=== PATIENT | male | born 1950 | race Caucasian/White ===

== ENCOUNTER 2020-09-27 07:03 | Outpatient (RCR) | payer MEDICARE, SELFPAY ==
[2020-09-27] MEDS: COVID-19 VACC, MRNA(PFIZER)/PF 30 MCG/0.3 ML SYRINGE IM (13:30)
[2020-10-18] MEDS: COVID-19 VACC, MRNA(PFIZER)/PF 30 MCG/0.3 ML SYRINGE IM (13:07)
== END 2020-12-24 23:59 ==
LOC: IMMUN 07:03
PROVIDERS: Referring Provider Family Medicine; Visit Provider Family Medicine
DX: Z23 Encounter for immunization (principal)
CPT/HCPCS: 0001A; 0002A; 91300

== ENCOUNTER 2022-03-27 08:00 | Outpatient (RCR) | payer MEDICARE, SELFPAY ==
--- NOTE | 2022-02-24 13:57 | HP.PTEVAL ---
Patient's Visit Information JOSÉ MIGUEL NGUYEN is a 71 year old M referred to Physical Therapy by Dr. Megan Chambers MD with a diagnosis of B knee pain. Date of Evaluation: 02/24/22 Physical Therapist: Gilberto Givens DPT, OCS, CSCS - Visit Plan Frequency: 2x /Week Duration: 2-4 Weeks Plan: 2x/week x 2-4 weeks. rollout and stretch quad B. strengthening hips and knees without pain. Progress HEP with pics. Pt does nto want gym but ex he can do at home. Management of knee OA activitiy modification. Consider water if land not helpful - Subjective B torn meniscus around 2011. in workers comp and had them scoped in consecutive years and had PT. Wasn't too bad after that but found a lot of OA. Not sure how it formed all of a sudden and does not think it did. Anyway, knees slowly getting worse. Got new primary care doctor and gave options for knee pain of pain management, ortho for knee replacement. Has had foam injection whcih did not help. Does not want pain management or surgery. Pain is 0-1 at rest and gets worse kneeling at [facility], walking too far or standing long time and walking up steps. Pain is up to 8/10 for a short time when flared up. Poured concrete in basement and could not work fast enough due to his pain and got back pain after that. Then he needed prednisone for back. Avoids riding a bike due to knee pain and would like to walk a couple blocks to [facility] but cannot due to knee pain. Gets out of breath because his mobility has been poor. sleeps well. 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 No reguilar exercises. Basic ADLs are getting donel - Pain B knee Pain Intensity (Out of 10): 0 Pain Intensity Range: 0, 8 - Objective B varus knees and some L antalgia in gait. Trasnfers and walks I. Steps without rail I. -2 to 115 L and -5 to 112 on R knee. Tender to touch medial joint line. quad max tight otherwise. Hip and ankle aROM WNL. + scour B knees. - Balance/Special Test Scores Functional Gait Assessment Score: 27 % Disability: 10.0000 Lower Extremity Functional Score: 41 - Goals Goal 1:: Pain 1/10 at worst Goal Time Frame: 2-4 Weeks Goal 2:: Pt feel 75% better and I in management of pain. Goal Time Frame: 2-4 Weeks Goal 3:: I management of condition Goal Time Frame: 2-4 Weeks Goal 4:: LEFS score 55/80 Goal Time Frame: 2-4 Weeks - Rehabilitation Potential Physical Therapy Diagnosis: B knee pain. Rehabilitation Potential: Good - Anticipated Interventions Patient/Client Instruction: Educate patient on: Condition, Plan of Care For the Purpose of:: To decrease pain, To increase ROM, To improve muscle performance and motor function, To increase tolerance to activity/condition/position, To improve ability of physical actions for home/community/work/leisure, To improve gait and locomotor functions Therapeutic Exercise to Include: Strength training, Flexibilty training, Passive ROM, Active ROM For the Purpose of:: To decrease pain, To increase ROM, To improve muscle performance and motor function, To increase tolerance to activity/condition/position, To improve ability of physical actions for home/community/work/leisure, To improve gait and locomotor functions Manual Therapy Techniques to Include: Soft tissue mobilization For the Purpose of:: To increase ROM Thank you for the opportunity to evaluate your patient. For Medicare and Medicare HMO plans, please review the plan of care and approve it. It will need to be FAXED BACK to us at [phone] for Medicare purposes. For Medicare only, by signing this I certify the plan of care. Please let me know if there are questions or concerns regarding this plan of care. Physician Signature: Date:
== END 2022-03-27 19:00 | disposition home or self-care (01) ==
LOC: PT 08:00
PROVIDERS: PCP Internal Medicine; Referring Provider Internal Medicine; Visit Provider Internal Medicine
DX: M25.561 Pain in right knee (principal); M25.562 Pain in left knee
CPT/HCPCS: 97110; 97140; 97161; 97530

== ENCOUNTER → 2022-05-05 | Outpatient (CLI) | payer MEDICARE, SELFPAY ==
[2022-05-05 12:33] LABS: Absolute Lymphocyte Count 1.54 X10^3/uL (0.83-4.51); Absolute Neutrophil Count 4.1 X10^3/uL (2.0-7.7); Basophil# 0.06 X10^3/uL; Basophil% 0.9 % (0-1); Eosinophils% 7.3 % (0-5); Hematocrit 42.2 % (40-54); Hemoglobin 13.8 g/dL (13.0-16.5); Lymphocyte # 1.54 X10^3/ul (0.83-4.51); Lymphocyte % 22.5 % (19-41); Mean Corp Hgb Conc 32.7 g/dL (32-36); Mean Corpuscular Hgb 31.9 pg (27.0-32.0); Mean Corpuscular Volume 97.7 fL (80-94); Mean Platelet Vol. 11.6 fl (6.2-12.0); Monocyte# 0.61 X10^3/uL; Monocyte% 8.9 % (0-10); NRBC Flagged by Analyzer 0 % (0-5); Platelet Count 179 K/mm3 (150-450); RBC Distribution Width CV 12.7 % (11.6-14.6); Red Blood Count 4.32 M/mm3 (4.6-6.2); White Blood Count 6.8 K/mm3 (4.4-11.0)
[2022-05-05 12:47] LABS: ALB/GLOB Ratio 1.3 RATIO (0.9-2.4); AST(SGOT) 26 U/L (15-37); Alanine Aminotransfer ALT/SGPT 45 U/L (16-61); Albumin, Serum 3.9 g/dL (3.2-5.0); Alkaline Phosphatase 71 U/L (45-117); Anion Gap 6 (5-15); BUN 29 mg/dL (7-18); BUN/Creat Ratio 30.7 RATIO (10-20); Calcium,Total 8.7 mg/dL (8.5-10.1); Chloride 110 mmol/L (98-107); Cholesterol 154 mg/dL (200); Creatinine, Serum 0.94 mg/dL (0.70-1.30); EST Glomerular Filtration Rate 84 mL/min (>60); Est Glom Filt Rate - Afr Amer 102 mL/min (>60); Glucose 102 mg/dL (74-106); High Density Lipoprotein 62 mg/dL; Potassium 4.8 mmol/L (3.5-5.1); Protein, Total 6.9 g/dL (6.4-8.2); Sodium Level 142 mmol/L (136-145); Triglycerides 57 mg/dL; Very Low Density Lipoprotein 11 mg/dL (5-40)
[2022-05-05 13:15] LABS: Hemoglobin A1c 5.7 % (3.8-5.6)
== END | disposition home or self-care (01) ==
LOC: BIMLAB 09:08
PROVIDERS: PCP Internal Medicine; Referring Provider Internal Medicine; Visit Provider Internal Medicine
DX: R73.03 Prediabetes (principal); E78.2 Mixed hyperlipidemia
CPT/HCPCS: 36415; 80053; 80061; 83036; 85025

== ENCOUNTER 2022-06-08 07:30 | Outpatient (RCR) | payer MEDICARE, SELFPAY ==
--- NOTE | 2022-05-21 12:45 | HP.PTEVAL_ITS ---
Patient's Visit Information JOSÉ MIGUEL NGUYEN is a 71 year old M referred to Physical Therapy by Dr. Darius Davis DO with a diagnosis of Acute LBP, sciatica. Date of Evaluation: 05/21/22 Physical Therapist: NANCY HaleyT, OCS, CSCS - Visit Plan Frequency: 2-3x /Week Duration: 4-6 Weeks Plan: 2-3x/week for 4-6 weeks for... 1. NS based LB core strength. 2. rollout and stretch psoas and quads progressing to I. 3. lossings traction if needed for pain, flexion mobs and ROM to LB. 4. TENS if needed to painful areas. - Subjective Sciatic nerve went out of control again. Saw Dr. Muñoz PCP and gave a med antiinflammatory and sent to chiropractor. . He could hardly stand 4 weeks ago.We were seeing him for hi knees. Usually feels good after adjustments and he cannot hold them due to knee pain according to chiropractor. Went to see Earlene this past Wednesday and he gave prescription for sciatic nerve which helps like chiropractic but wears off in 2-3 hours. Does help him sleep better which he appreciates. Will have TKA on R knee. Wants therapy for L sciatica and numbness into foot. R TKA is 07/07. Needs the other one done. Not sure why back pain flared up but may have to do with pouring concrete in basement. Pr otecting knees and felt sharp pain in leg L and was hard to stand. LBP this week to 8/10, was 10 last week. Goes down L leg and L foot numb but not sure what the pattern is , has to be stiff and hurts more getting into the car, twisting L seems worse. Walks 50 feet and then needs to rest weight through arms. - Pain LBP Pain Intensity (Out of 10): 5 Pain Intensity Range: 2, 8 Comment: meds help, am better after meds - Objective Leans R in seated posture to avoid L WB. Winces exitting chair. Walks I and trasnfers I. Slightly painful to lie flat on back on L LB. Obvious varus in B knees. Core strength is poor in transitions. LB AROM ext, R SB not painful and full, L SB limited and very painful, flexion limited without pain. L SB flex OK and L SB ext very painful. reflexes 2/3 patella and achilles. Sensation WNL to gross light touch B LE. Strength LE 4+/5 without myotomal abnormalities. - SLR, - Slump. Very tight HS and quads into psoas. B - Balance/Special Test Scores Oswestry Low Back Score: 26 - Goals Goal 1:: L SB LB without immediate pain and sit with symmetrical posture without pain Goal Time Frame: 4-6 Weeks Goal 2:: I approp NS ex and stretches for LB and upper legs and strength of core to prepare for TKA surgery. Goal Time Frame: 4-6 Weeks Goal 3:: Pt feel 75% better in LB pain and numbness L leg abolished. Goal Time Frame: 4-6 Weeks Goal 4:: Oswestry score 10 or less. Goal Time Frame: 4-6 Weeks - Rehabilitation Potential Physical Therapy Diagnosis: sciatica, likely degenerative, stenotic in nature causing functional problems. Rehabilitation Potential: Fair - Anticipated Interventions Patient/Client Instruction: Educate patient on: Condition, Plan of Care For the Purpose of:: To decrease pain, To increase ROM, To improve muscle performance and motor function, To increase tolerance to activity/condition/position, To improve ability of physical actions for home/community/work/leisure Therapeutic Exercise to Include: Strength training, Flexibilty training, Passive ROM, Active ROM, Dynamic Lumbar Stabilization For the Purpose of:: To decrease pain, To increase ROM, To improve muscle performance and motor function, To increase tolerance to activity/condition/position, To improve ability of physical actions for home/community/work/leisure Manual Therapy Techniques to Include: Mobilization, Passive ROM, Soft tissue mobilization For the Purpose of:: To decrease pain, To increase ROM TENS: Yes Thermo therapy (hot pack): Yes For the Purpose of:: To decrease pain Thank you for the opportunity to evaluate your patient. For Medicare and Medicare HMO plans, please review the plan of care and approve it. It will need to be FAXED BACK to us at [phone] for Medicare purposes. For Medicare only, by signing this I certify the plan of care. Please let me know if there are questions or concerns regarding this plan of care. Physician Signature: Date:
--- NOTE | 2022-06-08 08:30 | HP.PTDCSUM_ITS ---
It has been my pleasure to treat JOSÉ MIGUEL NGUYEN referred by Dr. Darius Davis DO, with the diagnosis of Acute LBP, sciatica for a total of 5 visit(s). Discharge Date: 06/08/22 Please see the following information for a summary of their discharge status. Subjective: Not doing better. Been fairly consisstent with excercises at home. [place] better after exrcises typically but yesterday was worse. Wants to continue exercises via HEP at home and then see what doctor says. Pain 9/10 yesterday with bridging. Pain yesterday afternoon to 10/10 in L LB and hard to walk. Chiroractor told him he needed surgery for knees to help LB. LBP Pain Intensity (Out of 10): 8 % Improvement: 0 Objective/Function: LB ext max limited, and painful L to get to neutral, SB mod limtied and painful L, flexion not painful. Tightnbess persists in upper quads and HS. Transition off chair is painful and walking is slightly hunched over. Still seems surprised today that he is supposed to hold neutral spine throughout his day despite frequent education on this previously but will try it again. Frustrated with his lack of improvement. Goal 1:: L SB LB without immediate pain and sit with symmetrical posture without pain Goal Progress: Not Progressing Goal 2:: I approp NS ex and stretches for LB and upper legs and strength of core to prepare for TKA surgery. Goal Progress: Not Progressing Goal 3:: Pt feel 75% better in LB pain and numbness L leg abolished. Goal Progress: Not Progressing Goal 4:: Oswestry score 10 or less. Goal Progress: Not Progressing Plan: d/c, pt to doctor in one week for next step with LB. Not improving Discharge Comments: Pt to doctor next week for next appropriate step as he is not improving with therapy and is frustrated. If there are questions or concerns regarding this patient's physical therapy, please feel free to call me at [phone]. Thank you for the referral of this patient. Sincerely, Gilberto Givens, DPT, OCS, CSCS Balance/Gait/Functional tests - Balance/Special Test Scores Oswestry Low Back Score: 26
== END 2022-06-08 19:00 | disposition home or self-care (01) ==
LOC: PT 07:30
PROVIDERS: PCP Internal Medicine; Referring Provider Orthopaedic Surgery; Visit Provider Orthopaedic Surgery
DX: M54.50 Low back pain, unspecified (principal); M54.30 Sciatica, unspecified side
CPT/HCPCS: 97110; 97140; 97161; 97164

== ENCOUNTER → 2022-06-26 | Outpatient (CLI) | payer MEDICARE, SELFPAY ==
--- NOTE | 2022-06-26 07:52 | CT_ITS ---
STUDY: CT SCAN LOWER EXTREMITY RIGHT REASON FOR EXAM: Male, 71 years old. Templating for right TKA. JORDAN protocol. RADIATION DOSAGE (If Supplied By Facility): CTDIvol = ( 19.19 ) mGy, DLP = ( 1358.67 ) mGycm. Individualized dose optimization techniques were used for this CT.? TECHNIQUE: Multiple axial tomographic images of the right hip joint, knee joint and ankle joint were obtained. Coronal and sagittal reconstruction was obtained as well. COMPARISON: None. FINDINGS: Imaging of the right hip joint was obtained. There is good alignment. There is a mild degree of joint space narrowing. Imaging of the right knee joint was obtained. There is evidence of spur formation along the medial and lateral distal femoral condyles. There is a marked degree of joint space narrowing of the medial compartment of the knee joint. Moderate degree of joint space narrowing involving the patellofemoral joint with the uterine spur formation arising from the anterior femoral condyle. Incidental note is made of a 1.6 cm x 1.4 cm well-defined soft tissue nodule in the posterior lateral aspect of the distal thigh within the subcutaneous fat suggestive of a small sebaceous cyst. Imaging of the ankle joint was obtained. No significant abnormality is seen. CT/Extremity Lower without Contra IMPRESSION: Marked degree of joint space narrowing involving the medial compartment of knee joint as well as moderate degree of osteoarthritis of the patellofemoral joint. Electronically Signed: Finesse Solomon MD at 9:32 EST ,
== END | disposition home or self-care (01) ==
LOC: CT 07:51
PROVIDERS: PCP Internal Medicine; Visit Provider Orthopaedic Surgery
DX: M17.0 Bilateral primary osteoarthritis of knee (principal)
CPT/HCPCS: 73700

== ENCOUNTER 2022-07-07 08:51 | Day surgery (SDC) | payer MEDICARE, SELFPAY ==
--- NOTE | 2022-07-02 08:46 | EKG12_ITS ---
Test Reason : PREOP Blood Pressure : / mmHG Vent. Rate : 083 BPM Atrial Rate : 083 BPM P-R Int : 172 ms QRS Dur : 094 ms QT Int : 378 ms P-R-T Axes : 018 033 035 degrees QTc Int : 444 ms Normal sinus rhythm Normal ECG Confirmed by DANNA DRIVER, KETURAH ([id number]), assignment desk editor PINO SCHMITT ([id number]) on 07/03/2022 10:36:28 AM Referred By: RACHAEL Confirmed By:ROGELIO CLAY MD
[2022-07-02 10:25] LABS: Absolute Lymphocyte Count 1.11 X10^3/uL (0.83-4.51); Absolute Neutrophil Count 3.7 X10^3/uL (2.0-7.7); Basophil# 0.05 X10^3/uL; Basophil% 0.9 % (0-1); Eosinophil# 0.23 X10^3/uL; Hematocrit 42.4 % (40-54); Hemoglobin 13.8 g/dL (13.0-16.5); Lymphocyte # 1.11 X10^3/ul (0.83-4.51); Lymphocyte % 19.4 % (19-41); Mean Corp Hgb Conc 32.5 g/dL (32-36); Mean Corpuscular Hgb 31.2 pg (27.0-32.0); Mean Corpuscular Volume 95.7 fL (80-94); Mean Platelet Vol. 10.8 fl (6.2-12.0); Monocyte# 0.58 X10^3/uL; Monocyte% 10.2 % (0-10); NRBC Flagged by Analyzer 0 % (0-5); Neutrophil # 3.71 X10^3/uL (2.7-7.7); Platelet Count 202 K/mm3 (150-450); RBC Distribution Width CV 12.6 % (11.6-14.6); Red Blood Count 4.43 M/mm3 (4.6-6.2); White Blood Count 5.7 K/mm3 (4.4-11.0)
[2022-07-02 10:36] LABS: Prothrombin Time (Protime)PT. 13.1 SECONDS (11.7-14.9)
[2022-07-02 10:37] LABS: Partial Thromboplast Time 26.5 Seconds (24.1-36.2)
[2022-07-02 10:50] LABS: Magnesium 2.3 mg/dL (1.6-2.6)
[2022-07-02 10:53] LABS: Hemoglobin A1c 5.8 % (3.8-5.6)
[2022-07-02 11:13] LABS: Anion Gap 6 (5-15); BUN 13 mg/dL (7-18); BUN/Creat Ratio 15.3 RATIO (10-20); Calcium,Total 9.3 mg/dL (8.5-10.1); Chloride 107 mmol/L (98-107); Creatinine, Serum 0.85 mg/dL (0.70-1.30); EST Glomerular Filtration Rate 95 mL/min (>60); Est Glom Filt Rate - Afr Amer 115 mL/min (>60); Glucose 105 mg/dL (74-106); Potassium 4.1 mmol/L (3.5-5.1); Sodium Level 142 mmol/L (136-145)
[2022-07-05 15:36] LABS: Fructosamine 234 umol/L (0-285)
[2022-07-07] VITALS (10 sets, daily range): BP systolic 117–144; BP diastolic 51–86; PULSE 56–103; RESP 16–19; TEMP 36.1–36.6; O2SAT 95–100; BMI 37.4
[2022-07-07] MEDS: Scopolamine 1mg/72hr Patch 1 PATCH TD (09:47)
[2022-07-07] MEDS: Gabapentin 600 MG Tablet PO (09:48)
[2022-07-07] MEDS: Celecoxib 200 MG Capsule 400 MG PO (09:48)
[2022-07-07] MEDS: Acetaminophen 500 MG Tablet 1000 MG PO (09:48)
[2022-07-07] MEDS: Magnesium 1 GM over 15 mins IV (09:48)
[2022-07-07] MEDS: Lactated Ringers 1,000 ML 15 ML IV (09:50)
[2022-07-07 10:16] LABS: Bedside Glucose 84 mg/dL (74-106)
--- NOTE | 2022-07-07 10:50 | PCM.HP.BLA ---
History and Physical Date of Admission: 07/07/22 [facility] [address] [place] [address] OFFICE VISIT Date of Service:? 06/17/22 MR#: [id number] Acct: [id number] Name:JOSÉ MIGUEL MENDEZ Rep #: [id number] : 1950 ? ? Provider: Dr. Darius Davis, DO Age/Sex:? 71/M ? ? [place] [facility] [place] Status: Signed Intake Intake Visit Reasons:?knee pain Chief Complaint: pain Is patient in pain?: Yes Allergies No Known Allergies Allergy (Verified 05/29/22 09:02) Medications duloxetine 60 mg capsule,delayed release 60 mg PO DAILY #30 caps 03/30/22 [Rx Confirmed 06/17/22] etodolac 500 mg tablet 500 mg PO BID PRN pain #60 tabs 05/18/22 [Rx Confirmed 06/17/22] pravastatin 20 mg tablet 20 mg PO DAILY #90 tabs 06/10/22 [Rx Confirmed 06/17/22] PFSH Medical History? Arthritis Bilateral primary osteoarthritis of knee Hyperlipemia Surgical History? History of knee surgery History of surgery on wrist Family History? Other Family history not known due to adoption Social History? household members:? none current occupational status:? 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 Current some day smoker tobacco type: pipe other: twice weekly Electronic Cigarette Use:? not used alcohol intake:? former year quit: 2006 substance use type:? does not use what type of physical activity do you participate in:? walking and bicycling do you feel safe at home:? Yes HPI knee pain Details: Parts of this documentation were recorded by a scribe, this documentation accurately reflects the service provided and the decisions made by me, Dr. Darius Davis, 06/17/22 1400. JOSÉ MIGUEL NGUYEN is a 71 year old M here today for? F/U on knee pain and the left sciatic pain. He states that he continues to have the sciatic pain over the left buttock and left leg pain down the lateral/posterior side of the hip. He wishes to discuss just proceeding with the right TKA prior to doing any further treatment for the left buttock pain. He states that he participated in 2 weeks of PT them quit because it was causing the pain to worsen. Denies any weakness of the left leg. Does have numbness and tingling of the left leg with pain that radiates from his back to his foot.. Denies any hx of back injuries or surgery or injections. Ortho Exam General General: Yes no acute distress Neurologic: Yes alert and Yes oriented x3 Psychologic: Yes reasonable and appropriate Right Knee Skin/Wound: Yes CDI, No erythema, No ecchymosis and No swelling Knee ROM: Yes ROM-Extension -20 to 0 (-10) and Yes ROM-Flexion 0-140 (108) Examination: Yes Med jt line tenderness, Yes Lat jt line tenderness, No Crepitus and No Illiotibial band tenderness Stability: NML: Anterior Drawer, NML: Posterior Drawer, NML: Valgus 0, NML: Valgus 30, NML: Varus 0 and NML: Varus 30 (fixed) Patella Translation: 1 KNEE: Intact sensation to light touch bilateral lower extremities Left Knee Skin/Wound: Yes CDI, No ecchymosis, No erythema and No swelling Homans Sign: No Knee ROM: Yes ROM-Extension -20 to 0 and Yes ROM-Flexion 0-140 (108) Examination: Yes med jt line tenderness, Yes Lat jt line tenderness and No Illiotibial band tenderness Stability: NML: Anterior Drawer, NML: Posterior Drawer, NML: Valgus 0, NML: Valgus 30 (3mm medial gapping), NML: Varus 0 and NML: Varus 30 Patella Translation: 1 Patella Grind: Yes KNEE: varus deformity, intact plantar flexion dorsiflexion bilateral Spine DTR's: Lt Patellar: 2+, Rt Ankle: 1+ and Lt Ankle: 1+ SPINE TESTING CERVICAL THORACIC LUMBAR Musculoskeletal Strength 0=absent - 5=normal L Hip Flexor (L1-3): 5, L Quadriceps (L2-4): 5, L Anterior Tibialis (L4-5): 5, L EHL (L5): 5 and L Hamstrings (L5-S1): 5 Details: Intact sensation to light touch throughout the lower extremity 5 out of 5 ankle strength. Supplemental Info 06/17/2022 x-ray lumbar spine.:?There is multilevel endplate spondylosis of the lumbar vertebrae.? There is multi-level degenerative disc disease with multi-level disc space narrowing.? Degenerative scoliosis 05/18/2022 x-ray left knee: Advanced medial compartment arthrosis moderate patellofemoral slight varus deformity 05/18/2022 x-ray right knee: Advanced medial compartment arthrosis moderate lateral and patellofemoral, varus deformity. Coding Level of Care Code Off vis,est,level 3 Diagnoses Sciatica of left side? M54.32 Bilateral primary osteoarthritis of knee? M17.0 Degenerative scoliosis? M41.50 Lumbar degenerative disc disease? M51.36 Assessment and Plan Assessment and Plan (1) Sciatica of left side: ?Status:?Acute (2) Bilateral primary osteoarthritis of knee: ?Status:?Acute (3) Degenerative scoliosis: ?Status:?Acute (4) Lumbar degenerative disc disease: ?Status:?Acute ? ? ? Orders: Orders Lumbar Spine 2 or 3 Views Today M54.32 - Sciatica, left side ? Spine? Lumbar (Routine) Today M54.32 - Sciatica, left side ? Plan Details Additional Comments: Patient educated that since the PT and palliative care specialist wasn't helpful for the sciatica pain then the next treatment for the low back and left leg would be to have? MRI of the lumbar spine. He wishes to proceed? the MRI. Educated that he does have OA of the right knee. He wishes to proceed with the right TKA.?Risks, benefits and alternatives of surgery reviewed including but not limited to bleeding, infection, nerve, artery and/or tissue damage, fracture, VTE, mechanical feel of the knee, continued pain, stiffness and expected post-operative course. Patient wishes to proceed with the workup of the lumbar spine along with proceeding with the CT for the right TKA and preop. Risks, benefits and alternatives of surgery reviewed including but not limited to bleeding, infection, nerve, artery and/or tissue damage, fracture, VTE, mechanical feel of the knee, continued pain, stiffness and expected post-operative course. Will need CT scan for MAKOplasty total knee arthroplasty Tentative surgery date 07/07/2022 Follow up after MRI of lumbar spine or post op or sooner if pain, swelling, numbness or associated symptoms, or concerns develop.? All questions answered. Patient in agreement of plan. 06/17/22 1514 <Electronically signed by Darius Davis DO> Date Darius Davis DO Cosigner Signature: Date (if applicable) ? CC: ? ~I have examined the patient and the H&P has been reviewed. There are no clinical changes since date of exam.
--- NOTE | 2022-07-07 11:00 | KNEE_PTH ---
PATIENT: JOSÉ MIGUEL NGUYEN [place] [facility] [place][id number] AGE/SX: 71/M ROOM: RE07/07/[address]: Dr. Darius Davis DO : 1950 BED: DIS: 07/07/2022 SPEC #: [id number] RECD: 07/08/22 10:18 STATUS: SARI REYuan #: [id number] CANDACE: 07/07/22 11:[address]: Darius Davis DEPT: SURGICAL PATHOLOGY RECD BY: Bobbi Aldrich ENTERED: 07/08/22 11:01 SP TYPE: TOTAL KNEE OTHR DR: Dr. Megan Chambers MD Tissues: Knee, NOS Procedures: Decalcification bone/plaque Surgery Specimen Level IV HEADER OPERATION: ERAS, total knee replacement robotic arm assist PRE-OP DIAGNOSIS: Sciatica of left side, bilateral primary osteoarthritis of knee, degenerative scoliosis TISSUE SUBMITTED: Right knee bone MICROSCOPIC DIAGNOSIS Right knee bone, total knee replacement/resection: Pieces of bone with degenerative osteoarthritic changes. Fibroadipose tissue, fibroconnective tissue and reactive synovial tissue. SJ:kenzie 07/14/2022 MICROSCOPIC DESCRIPTION Slides are reviewed. GROSS DESCRIPTION Received is one container designated right knee bone. The specimen consists of multiple fragments of robison-yellow bone measuring in aggregate 15 x 11 x 2 cm. Also in the specimen container are multiple fragments of yellow-white soft tissue measuring in aggregate 6 x 5 x 1.5 cm. A number of bony fragments contain articular surfaces consistent with tibial plateau and femoral condyle and displaying prominent osteophyte formation, eburnation, and bone erosion. Installation And Repair Technician sections are submitted in two cassettes as follows: 1 - soft tissue, 2 - bone after decalcification. / AM:kenzie 07/08/2022 :5 CPT: 76813, 88512
[2022-07-07] MEDS: Lactated Ringers 1,000 ML 125 ML IV (12:00)
[2022-07-07] MEDS: Cefazolin 2 GM in 0.9% Normal Saline 100 ML IV (12:46)
[2022-07-07] MEDS: TXA 1000mg in NS100 100ml (IVPB at Closure) 660 MG IV (12:56)
[2022-07-07] MEDS: dexAMETHasone 10 MG/ML Vial IV (13:06)
[2022-07-07] MEDS: MethylPREDNISolone Acetate 40 MG/ML Vial IM (14:00)
[2022-07-07] MEDS: 0.9% Normal Saline (Pres. free 10 ML Vial (14:00)
[2022-07-07] MEDS: Epinephrine (1 mg/ml) 1 MG/ML VIAL (14:00)
[2022-07-07] MEDS: TXA 1000mg in NS100 100ml (IVPB at Incision) 660 MG IV (14:47)
--- NOTE | 2022-07-07 15:02 | OP.PCM_ITS ---
Operative Report Date of Procedure: 07/07/22 Preoperative diagnosis: Right knee DJD Postoperative diagnosis: Same Procedure: Right total knee arthroplasty CT guided Robotic Assisted Implant: [place] triathlon press fit, femoral component size5, tibial baseplate size 6, asymmetric patella size 38, polyethylene X3 size 9 CS Anesthesia: Spinal with adductor canal block Tourniquet time: 47 minutes at 300 mmHg Complications: None Condition: Stable to PACU Estimated blood loss: 200 cc Indication for procedure: This is a 71-year-old male with long standing degenerative joint disease of the knee who has failed conservative treatment and wished to proceed with elective total knee arthroplasty. Risk benefits and alternatives were reviewed including; risk of bleeding, infection, nerve artery and tissue damage, continued pain, postoperative stiffness, venous thromboembolism, need for postoperative rehabilitation, mechanical feel to the knee, and expected postoperative course. The pre- operative CT and templating was performed with component sizing. Procedure: The patient was met in the preoperative holding area. The operative extremity was identified by both patient and physician and was marked. Patient was met by anesthesia. An adductor canal block was placed by anesthesia postoperatively the patient was brought back to the operating room on a wheeled cart and transferred to the operating table in the supine position. Anesthesia was started. A well-padded tourniquet was placed on the operative extremity. T he patient was prepped and draped in the usual sterile fashion. A timeout was called to ensure the proper patient procedure and extremity were being contemplated. An esmarch was used to exsanguinate the extremity. The tourniquet was inflated. A 10 blade scalpel was used to make a midline incision down through the skin and subcutaneous tissue. Skin retractors placed. Bovie and Aquamantis were used to perform meticulous hemostasis. full-thickness flaps were elevated medial and lateral along the joint capsule. A deep blade scalpel was used to perform a medial parapatellar arthrotomy. The knee was brought to full extension. A bovie was used to release the soft tissues off the most proximal aspect of the medial tibial plateau, a three-quarter inch curved osteotome was also used in this process. The infrapatellar fat pad was excised. The suprapatellar fat pad was excised partially anteriorolateraly and portion the anterioromedial pad was elevated from the femur. At this point our intra- articular femoral array was placed at a 45 degree angle proximal and posterior to the medial epicondyle. femoral checkpoint was placed at this time. Our tibial array was placed greater than 1 hands breath below the incision at a 20 degree angle stab incisions were made with a 15 blade scalpel and pins were placed and attached to the tibial array , tibial checkpoint was placed in the proximal tibial metaphysis. Tourniquet was let down. At this point registration henry were taken throughout the knee . Once the knee was registered we then tensioned the medial and lateral ligaments in extension and 90 degrees of flexion. We then used these numbers to adjust our components within parameters to balance the knee in both flexion and extension once this was done on our monitor we then proceeded with using the robotic arm to make our tibial plateau cut, anterior and posterior chamfer and distal femur cuts. we removed the cut fragments with the use of a bovie and Micki, we did use a lamina fishing tool operator to insure we visualized and removed all posterior osteophytes and at this time also used the Aquamantis on the posterior joint capsule. we then trialed and achieved the desired plan with a well-balanced knee. we used the green probe to vishal the corresponding tibial rotation based on our CT template. Lug holes were drilled in the femur the tibia preparation was completed with the appropriate sized base plate pinned based on previous rotation vishal. An appropriate sized fin punch was used on the tibia and 4 corner drill was used for the press fit component and the patella was prepared by first using a caliper to ensure sufficient bone stock and a patellar reamer to remove the desired amount of bone. lug holes drilled for an asymmetric poly. We then brought the knee through range of motion with excellent patellar tracking. We thoroughly irrigated the knee. Trial components were removed a posterior capsular injection was preformed with our standard cocktail. In ad dition the aqua Mantis was also used to aid in hemostasis. Betadine rinse was allowed to sit and washed out completely. Components were press-fit into place. Aricept rinse was then used followed by several more liters of irrigation after it was allowed to sit. The joint capsule was closed with #1 Ethibond [id number] followed by Vicryl in the subcutaneous tissues with alyson in the skin. Arrays and checkpoints were removed prior to closure all counts were correct stab incisions were closed with a staple standard dressing in the form of Mepilex AG for the main incision and a small Mepilex over the pin holes. Thigh-high MITUL hose applied over top of dressing. Patient tolerated the procedure well and was directed to PACU in stable condition . There were no intraoperative complications.
--- NOTE | 2022-07-07 15:04 | DCINST_ITS ---
Discharge Instructions Diet Discharge Diet: Carb Control Diet (High blood sugars in the perioperative period can increase risk of infection) Activity Weight Bearing Status: Weight bearing as tolerated Dressing / Incision Call your doctor if you observe: Swelling in the ankles and Chest pain Additional Dressing/Incision Instructions:: Ice and elevate lower extremities 2 weeks while not ambulating. Ambulation is encouraged. Weight bearing as tolerated. Use assistive devise for stability. Encourage FULL knee extension and flexion 1 time EVERY time you get up and down and MULTIPLE times per day. N o showering 72 hours after surgery. Begin showering postop day #3. Remove the dressing prior to shower and gently wash with warm water and antibacterial soap then pat dry and place abdominal pad (or plain gauze) and MITUL hose over top. This is to be done daily. Do not submerge for 3 weeks. If not showering daily after the initial 72 hours then you must clean incision and change dressing daily. Do not allow animals near the incision area. Keep clean. Follow anti- coagulation recommendations as prescribed. Do not take any NSAIDs while on blood thinner. Do not take any additional narcotic pain medication other than what was prescribed on your surgery day without discussing with physician. Narcotic medication can be addictive. Do not drink alcohol while taking narcotics. Supplement narcotic prescription with acetaminophen 1000 mg 4 times a day. Start physical therapy. If you are not currently scheduled for physical therapy or you are unsure of appointment time please call office [facility] to arrange. Call Dr. Davis with any concerns. Follow Up Care Please Follow Up With: Darius Davis DO When: 2 weeks Test Results: Test results from this visit will be discussed in further detail at your follow- up appointment, if applicable. Discharge Plan Admission Primary Reason for Your Visit: Right total knee arthroplasty Attending Provider: Darius Davis Primary Care Provider: Megan Chambers Discharge Orders/Prescriptions Prescriptions: New acetaminophen [acetaminophen] 500 mg tablet 1,000 mg PO Q6H PRN Qty: 100 0RF cephalexin [cephalexin] 500 mg capsule 1,000 mg PO Q8 Qty: 4 0RF Rx Instructions: take 2 tabs at 9:00 pm and 2 tabs after 5 am when you wake up Eliquis 2.5 mg tablet 2.5 mg PO BID Qty: 28 0RF Rx Instructions: Begin morning after surgery. oxycodone 5 mg tablet 5 - 10 mg PO Q4H PRN (Reason: pain) 7 Days Qty: 60 0RF Continued pravastatin 20 mg tablet 20 mg PO DAILY Qty: 90 1RF Discontinued etodolac 500 mg tablet 500 mg PO BID PRN (Reason: pain) Qty: 60 0RF Rx Instructions: Do not take in conjunction with other NSAIDs including meloxicam. Tylenol is okay. Hold 7 days prior to joint replacement surgery. Other Ambulatory Orders: 12 Lead EKG (Routine) Timeframe: [id number] Location: None Selected Ordered By: Dr. Gilberto Romero Referrals / Follow Up: Megan Chambers MD [Primary Care Provider] - Disposition Discharge Orders: Discharge Patient (Routine); Ordered 07/07/22 Ordered By: Dr. Darius Davis
--- NOTE | 2022-07-07 15:35 | RAD_ITS ---
STUDY: XR Knee 1 or 2 Views 07/07/2022 5:00 PM REASON FOR EXAM: Male, 71 years old. post op -- in PACU TECHNIQUE: XR Knee 1 or 2 Views RIGHT COMPARISON: 05.18.22 FINDINGS: There is no fracture or dislocation. There is anatomic alignment. Total knee arthroplasty. Soft tissue edema. Skin alyson are seen along the anterior midline aspect of the knee. There is an air-fluid level seen in the suprapatellar region. Joint space is preserved. Subcutaneous air is noted. RAD/Knee 1 or 2 Views IMPRESSION: Successful total knee arthroplasty. Electronically Signed: Vinicius Jackson MD at 17:02 EST ,
[2022-07-07] MEDS: oxyCODONE 5 MG Tablet PO (17:01)
[2022-07-07] MEDS: Cefazolin 1 GM/50 ML BAG IV (17:33)
== END 2022-07-07 19:04 | disposition home or self-care (01) ==
LOC: SDC 08:53 → AC 08:54
PROVIDERS: Anesthesiology; PCP Internal Medicine; Referring Provider Orthopaedic Surgery; Visit Provider Orthopaedic Surgery
PROC: 0SRC0JZ Replacement of Right Knee Joint with Synthetic Substitute, Open Approach (ICD-10-PCS; CPT 27447; principal; 2022-07-07 10:30)
DX: M17.0 Bilateral primary osteoarthritis of knee (principal); M41.9 Scoliosis, unspecified; F17.200 Nicotine dependence, unspecified, uncomplicated; M51.16 Intervertebral disc disorders with radiculopathy, lumbar region; E78.5 Hyperlipidemia, unspecified; M54.32 Sciatica, left side; Z79.899 Other long term (current) drug therapy; M25.562 Pain in left knee; M19.90 Unspecified osteoarthritis, unspecified site; M41.50 Other secondary scoliosis, site unspecified; Z92.241 Personal history of systemic steroid therapy; M51.36 Other intervertebral disc degeneration, lumbar region
CPT/HCPCS: 27447; 64450; 36415; 73560; 80048; 82962; 82985; 83036; 83735; 85025; 85610; 85730; 86850; 86870; 86900; 86901; 86902; 86905; 86920; 86921; 86922; 87081; 88305; 88311; 93005; 97166; C1776; J7120; J2405; J3475; J3490

== ENCOUNTER → 2022-07-14 | Outpatient (CLI) | payer MEDICARE, SELFPAY ==
--- NOTE | 2022-07-14 13:56 | MRI_ITS ---
STUDY: MRI LUMBAR SPINE WITHOUT CONTRAST REASON FOR EXAM: Male, 71 years old. PAIN RADIATING INTO RIGHT LEG X 3 MONTHS. PAIN HAS BEEN RELIEVED SOME SINCE RECENT RIGHT KNEE SURGERY. XR TYFLGN32/30/22 TECHNIQUE: Standardized fat and water weighted pulse sequences were obtained in the sagittal and axial planes. COMPARISON: X-ray of the lumbar spine dated June 17, 2022 FINDINGS: Normal lumbar lordosis. There is a levoscoliosis of the lumbar spine. Normal conus medullaris that terminates at the T12-L1 level. No marrow edema or fracture or compression deformity is present. T12-L1: Normal endplates. Normal disc height, hydration and morphology. Normal bilateral facet joints. Normal central canal and bilateral lateral recesses. Normal bilateral intervertebral neural foramina. L1-2: Diffuse disc desiccation with mild to moderate disc space narrowing and minimal annular bulging. Anterior endplate spurs. Normal bilateral facet joints. Normal central canal and bilateral lateral recesses. Normal bilateral intervertebral neural foramina. Mild MODIC endplate degenerative signal. L2-3: Diffuse disc desiccation with mild to moderate disc space narrowing and minimal annular bulging. Anterior endplate spurs. Normal bilateral facet joints. Normal central canal and bilateral lateral recesses. Normal bilateral intervertebral neural foramina. L3-4: Diffuse disc desiccation with moderate disc space narrowing resulting in minimal annular bulging. Mild to moderate MODIC endplate degenerative signal and spurring and small Schmorl''s node. Mild to moderate facet joint hypertrophy with moderate right foraminal stenosis and posterior nerve root impingement. Normal left neural foramen. Normal central canal and bilateral lateral recesses. L4-5: Mild endplate degenerative signal and endplate spurring. Mild to moderate disc space narrowing with diffuse disc desiccation and diffuse disc bulging combined with moderate facet joint hypertrophy results in mild central canal stenosis. Mild to moderate fluid distention of the left facet joint. Severe left foraminal stenosis with nerve root compression. Mild right foraminal stenosis with posterior nerve root impingement. L5-S1: Mild MODIC endplate degenerative signal and spurring. Small Schmorl''s node. Diffuse disc desiccation with mild to moderate disc space narrowing and diffuse disc bulging. Moderate facet joint hypertrophy and degeneration contributes to moderate left foraminal stenosis with nerve root compression and mild right foraminal stenosis with impingement. Normal central canal and bilateral lateral recesses. Normal visualized sacral ala. Normal visualized paraspinous soft tissue structures. MRI/Spine Lumbar (Routine) IMPRESSION: 1. Multilevel degenerative changes, as described above. 2. Mild central canal stenosis at L4-L5 3. Bilateral foraminal stenosis at L4-L5 and L5-S1 with nerve root impingement/compression 4. Moderate right foraminal stenosis with nerve root compression at L3-L4 Electronically Signed: Jabier Gil MD at 9:48 EST ,
== END | disposition home or self-care (01) ==
LOC: MRI 13:46
PROVIDERS: PCP Internal Medicine; Referring Provider Orthopaedic Surgery; Visit Provider Orthopaedic Surgery
DX: M54.32 Sciatica, left side (principal)
CPT/HCPCS: 72148

== ENCOUNTER → 2022-07-17 | Outpatient (CLI) | payer MEDICARE, SELFPAY ==
[2022-07-17 15:33] LABS: Absolute Lymphocyte Count 0.93 X10^3/uL (0.83-4.51); Basophil# 0.04 X10^3/uL; Basophil% 0.6 % (0-1); Eosinophil# 0.41 X10^3/uL; Eosinophils% 5.8 % (0-5); Hematocrit 34.6 % (40-54); Lymphocyte # 0.93 X10^3/ul (0.83-4.51); Lymphocyte % 13.2 % (19-41); Mean Corp Hgb Conc 31.8 g/dL (32-36); Mean Corpuscular Hgb 31.7 pg (27.0-32.0); Mean Corpuscular Volume 99.7 fL (80-94); Mean Platelet Vol. 10.4 fl (6.2-12.0); Monocyte# 0.65 X10^3/uL; Monocyte% 9.2 % (0-10); NRBC Flagged by Analyzer 0 % (0-5); Neutrophil # 4.99 X10^3/uL (2.7-7.7); Neutrophil % 70.6 % (47-70); Platelet Count 297 K/mm3 (150-450); RBC Distribution Width CV 12.8 % (11.6-14.6); RBC Distribution Width SD 45.7 fl (35.1-43.9); Red Blood Count 3.47 M/mm3 (4.6-6.2); White Blood Count 7.1 K/mm3 (4.4-11.0)
[2022-07-17 15:48] LABS: ALB/GLOB Ratio 1.1 RATIO (0.9-2.4); AST(SGOT) 30 U/L (15-37); Alanine Aminotransfer ALT/SGPT 56 U/L (16-61); Albumin, Serum 3.6 g/dL (3.2-5.0); Alkaline Phosphatase 52 U/L (45-117); Anion Gap 6 (5-15); BUN 13 mg/dL (7-18); BUN/Creat Ratio 15.8 RATIO (10-20); Calcium,Total 9.3 mg/dL (8.5-10.1); Chloride 103 mmol/L (98-107); Creatinine, Serum 0.82 mg/dL (0.70-1.30); EST Glomerular Filtration Rate 98 mL/min (>60); Est Glom Filt Rate - Afr Amer 119 mL/min (>60); Globulin 3.4 g/dL (2.2-4.2); Glucose 105 mg/dL (74-106); Potassium 4.2 mmol/L (3.5-5.1); Sodium Level 138 mmol/L (136-145)
== END | disposition home or self-care (01) ==
LOC: BIMLAB 12:18
PROVIDERS: PCP Internal Medicine; Referring Provider Physician Assistant; Visit Provider Physician Assistant
DX: Z96.659 Presence of unspecified artificial knee joint (principal); L23.9 Allergic contact dermatitis, unspecified cause
CPT/HCPCS: 36415; 80053; 85025

== ENCOUNTER 2022-09-04 08:00 | Outpatient (RCR) | payer MEDICARE, SELFPAY ==
--- NOTE | 2022-07-09 13:19 | HP.PTEVAL_ITS ---
Patient's Visit Information JOSÉ MIGUEL NGUYEN is a 71 year old M referred to Physical Therapy by Dr. Darius Davis DO with a diagnosis of R TKA. Date of Evaluation: 07/09/22 Physical Therapist: Vinicius Ch, PT, ATC - Visit Plan Frequency: 2-3x /Week Duration: 4-6 Weeks Plan: R knee PROM/mobs, core stab ex's, R LE strengthening, balance and prorio, gait training, stair negotiation, nustep, and HEP - Subjective DOS: 07/07/22. Pt reports he had a R TKA performed on that date. Pt notes he had a long Hx of R knee pain prior to this procedure. Pt also notes his L knee is shot and will need replaced in the near future. Pt reports is is hard to tell if he did the right thing yet secondary to his pain level. Pt denies any R LE tingling or numbness with exception to the perisurgical site. Pt reports he has no sleep difficulty secondary to his pain meds. Pt reports he has stairs to get to his bedroom and bathroom that he has not negotiated at this time. Pt reports he sleeps down stairs. 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 4/10 pain at rest, 8/10 pain at worst (when he wakes up in the morning) - Pain R TKA Pain Intensity (Out of 10): 4 Pain Intensity Range: 8 - Objective Neuro: B LE sensation is WNL to light touch. Girth at joint line: L knee 45/60 cm, R knee 48/62 cm. ROM: L knee 0-115, R knee 0-30-80. MMT: L knee flex= 33, ext= 41; R knee flex= 5, ext= 0 #F. Gait: Pt is able to ambulate 120 feet until feeling tired and requesting a rest - Balance/Special Test Scores Lower Extremity Functional Score: 3 - Goals Goal 1:: Decrease R knee pain x 50% to aid with sleep Goal Time Frame: 4-6 Weeks Goal 2:: Increase R knee ROM x 40 degrees to aid with restoring a more normalized gait pattern Goal Time Frame: 4-6 Weeks Goal 3:: Increase R knee strength x 10#F to aid with stair negotiation Goal Time Frame: 4-6 Weeks Goal 4:: I with HEP Goal Time Frame: 4-6 Weeks - Rehabilitation Potential Physical Therapy Diagnosis: Pt has R knee pain, weakness, and limited ROM arthur clemente to R TKA Rehabilitation Potential: Good - Anticipated Interventions Patient/Client Instruction: Educate patient on: Condition, Plan of Care For the Purpose of:: To improve self management Therapeutic Exercise to Include: Strength training, Endurance training, Balance training, Flexibilty training, Gait and locomotor training, Passive ROM, Active ROM, Dynamic Lumbar Stabilization For the Purpose of:: To decrease pain, To increase ROM, To improve muscle performance and motor function Cryotherapy (ice pack, ice massage): Yes For the Purpose of:: To decrease pain Thank you for the opportunity to evaluate your patient. For Medicare and Medicare HMO plans, please review the plan of care and approve it. It will need to be FAXED BACK to us at [phone] for Medicare purposes. For Medicare only, by signing this I certify the plan of care. Please let me know if there are questions or concerns regarding this plan of care. Physician Signature: Date:
--- NOTE | 2022-08-07 10:30 | HP.PTREVAL ---
Dr. Darius Davis, DO, It has been my pleasure to treat JOSÉ MIGUEL NGUYEN over the last 10 visits for R TKA 07/07/22. Please see the progress note below for an update on the physical therapy plan of care! Subjective: I am mostly just stiff today Objective/Function: R knee pain ranges from 1-9/10. R knee MMT: flex= 34, ext= 24 #F. R knee ROM: 0-15-110 degrees. Pt is showing excellent progress toward Rx goals Plan Plan: R knee PROM/mobs, core stab ex's, R LE strengthening, balance and prorio, gait training, stair negotiation, nustep, and HEP Balance/Gait/Functional tests - Balance/Special Test Scores Lower Extremity Functional Score: 3 Goals Goal 1:: Decrease R knee pain x 50% to aid with sleep Goal Time Frame: 4-6 Weeks Goal 2:: Increase R knee ROM x 40 degrees to aid with restoring a more normalized gait pattern Goal Time Frame: 4-6 Weeks Goal 3:: Increase R knee strength x 10#F to aid with stair negotiation Goal Time Frame: 4-6 Weeks Goal 4:: I with HEP Goal Time Frame: 4-6 Weeks Anticipated Interventions Patient/Client Instruction: Educate patient on: Condition, Plan of Care For the Purpose of:: To improve self management Therapeutic Exercise to Include: Strength training, Endurance training, Balance training, Flexibilty training, Gait and locomotor training, Passive ROM, Active ROM, Dynamic Lumbar Stabilization For the Purpose of:: To decrease pain, To increase ROM, To improve muscle performance and motor function Cryotherapy (ice pack, ice massage): Yes For the Purpose of:: To decrease pain Please do not hesitate to contact me at [phone] by phone or if you have questions or concerns regarding this new plan of care! Sincerely, Vinicius Ch, PT, ATC
--- NOTE | 2022-09-04 08:35 | HP.PTDCSUM ---
It has been my pleasure to treat JOSÉ MIGUEL NGUYEN referred by Dr. Darius Davis DO, with the diagnosis of R TKA 07/07/22 for a total of 21 visit(s). Discharge Date: Please see the following information for a summary of their discharge status. Subjective: Pt reports no pain today R TKA Pain Intensity (Out of 10): 0 % Improvement: 75 Objective/Function: TU.13. Pain 0/10. Girth at joint line: 47 cm, 6 above 58 cm. ROM: 0-11-112. Strength: flex= 37, ext= 45 #F Goal 1:: Decrease R knee pain x 50% to aid with sleep Goal Progress: Goal Met Goal 2:: Increase R knee ROM x 40 degrees to aid with restoring a more normalized gait pattern Goal Progress: Goal Met Goal 3:: Increase R knee strength x 10#F to aid with stair negotiation Goal Progress: Goal Met Goal 4:: I with HEP Goal Progress: Goal Met Plan: DC to HEP If there are questions or concerns regarding this patient's physical therapy, please feel free to call me at [phone]. Thank you for the referral of this patient. Sincerely, Vinicius Ch, PT, ATC Balance/Gait/Functional tests - Balance/Special Test Scores Lower Extremity Functional Score: 41
== END 2022-09-04 14:32 | disposition home or self-care (01) ==
LOC: PT 08:00
PROVIDERS: PCP Internal Medicine; Referring Provider Orthopaedic Surgery; Visit Provider Orthopaedic Surgery
DX: M17.0 Bilateral primary osteoarthritis of knee (principal); Z47.1 Aftercare following joint replacement surgery; Z96.651 Presence of right artificial knee joint
CPT/HCPCS: 97110; 97116; 97140; 97161; 97164

== ENCOUNTER → 2022-09-05 | Outpatient (CLI) | payer MEDICARE, SELFPAY ==
--- NOTE | 2022-09-05 09:54 | CT_ITS ---
EXAM: CT LEFT LOWER EXTREMITY WITHOUT INTRAVENOUS CONTRAST CLINICAL INDICATION: templating for left TKA TECHNIQUE: Helically acquired images were obtained of the left lower extremity without intravenous contrast. 2-D reformats were performed by the technologist. This CT exam was performed using one or more of the following dose reduction techniques: automated exposure control, adjustment of the mA and/or kV according to patient size, and/or use of iterative reconstruction technique. This report was created using [employer] report generation technology. COMPARISON: None. FINDINGS: BONES/JOINTS: CT sections through the hip, knee and ankle with axial, sagittal and coronal reformatted imaging demonstrates prominent narrowing of the medial knee joint compartment and patellofemoral joint space associated with moderate amount of osteophytosis. No acute fracture, subluxation or joint effusion. Plantar calcaneal spur noted. Left hip joint is intact. SOFT TISSUES: Normal. No soft tissue swelling or gas. No radiopaque foreign body. CT/Extremity Lower without Contra IMPRESSION: Moderate osteoarthritis of the left knee. Electronically Signed: Aleksey Bhatia MD at 10:14 EST ,
== END | disposition home or self-care (01) ==
LOC: CT 09:53
PROVIDERS: PCP Internal Medicine; Referring Provider Orthopaedic Surgery; Visit Provider Orthopaedic Surgery
DX: M17.0 Bilateral primary osteoarthritis of knee (principal)
CPT/HCPCS: 73700

== ENCOUNTER 2022-10-13 08:29 | Day surgery (SDC) | payer MEDICARE, SELFPAY ==
--- NOTE | 2022-10-02 12:02 | EKG12_ITS ---
Test Reason : PREOP Blood Pressure : / mmHG Vent. Rate : 075 BPM Atrial Rate : 075 BPM P-R Int : 174 ms QRS Dur : 092 ms QT Int : 384 ms P-R-T Axes : 044 020 029 degrees QTc Int : 428 ms Normal sinus rhythm Normal ECG Confirmed by DANNA DRIVER, KETURAH ([id number]), science editor PINO SCHMITT ([id number]) on 10/05/2022 12:17:33 P M Referred By: Darius Davis Confirmed By:ROGELIO CLAY MD
[2022-10-02 13:40] LABS: Absolute Lymphocyte Count 1.51 X10^3/uL (0.83-4.51); Absolute Neutrophil Count 3.8 X10^3/uL (2.0-7.7); Basophil# 0.05 X10^3/uL; Basophil% 0.8 % (0-1); Eosinophil# 0.18 X10^3/uL; Eosinophils% 2.8 % (0-5); Hematocrit 40.7 % (40-54); Hemoglobin 13.1 g/dL (13.0-16.5); Lymphocyte # 1.51 X10^3/ul (0.83-4.51); Lymphocyte % 23.9 % (19-41); Mean Corp Hgb Conc 32.2 g/dL (32-36); Mean Corpuscular Hgb 30.3 pg (27.0-32.0); Mean Platelet Vol. 11.3 fl (6.2-12.0); Monocyte# 0.66 X10^3/uL; Monocyte% 10.4 % (0-10); NRBC Flagged by Analyzer 0 % (0-5); Neutrophil # 3.84 X10^3/uL (2.7-7.7); Neutrophil % 60.8 % (47-70); Platelet Count 187 K/mm3 (150-450); RBC Distribution Width CV 12.8 % (11.6-14.6); RBC Distribution Width SD 44.3 fl (35.1-43.9); Red Blood Count 4.33 M/mm3 (4.6-6.2); White Blood Count 6.3 K/mm3 (4.4-11.0)
[2022-10-02 13:48] LABS: Partial Thromboplast Time 26.2 Seconds (24.1-36.2); Prothrombin Time (Protime)PT. 13.2 SECONDS (11.7-14.9)
[2022-10-02 14:01] LABS: Magnesium 1.9 mg/dL (1.6-2.6)
[2022-10-02 14:12] LABS: Hemoglobin A1c 5.6 % (3.8-5.6)
[2022-10-02 14:13] LABS: ALB/GLOB Ratio 1.3 RATIO (0.9-2.4); AST(SGOT) 12 U/L (15-37); Alanine Aminotransfer ALT/SGPT 25 U/L (16-61); Albumin, Serum 3.7 g/dL (3.2-5.0); Alkaline Phosphatase 62 U/L (45-117); Anion Gap 8 (5-15); BUN 18 mg/dL (7-18); BUN/Creat Ratio 19.8 RATIO (10-20); Chloride 107 mmol/L (98-107); Creatinine, Serum 0.91 mg/dL (0.70-1.30); EST Glomerular Filtration Rate 88 mL/min (>60); Est Glom Filt Rate - Afr Amer 106 mL/min (>60); Globulin 2.8 g/dL (2.2-4.2); Glucose 101 mg/dL (74-106); Potassium 3.9 mmol/L (3.5-5.1); Protein, Total 6.5 g/dL (6.4-8.2); Sodium Level 142 mmol/L (136-145); Thyroid Stim Hormone (TSH) 0.69 uIU/mL (0.358-3.74)
[2022-10-05 12:23] LABS: Fructosamine 235 umol/L (0-285)
[2022-10-13] VITALS (8 sets, daily range): BP systolic 96–150; BP diastolic 49–85; PULSE 61–87; RESP 13–20; TEMP 36.1–37.1; O2SAT 95–100; BMI 36.7
[2022-10-13] MEDS: Scopolamine 1mg/72hr Patch 1 PATCH TD (09:31)
[2022-10-13] MEDS: Celecoxib 200 MG Capsule 400 MG PO (09:32)
[2022-10-13] MEDS: Acetaminophen 500 MG Tablet 1000 MG PO (09:32)
[2022-10-13] MEDS: Magnesium 2 GM for ERAS IV (09:32)
[2022-10-13] MEDS: Gabapentin 600 MG Tablet PO (09:32)
[2022-10-13] MEDS: Lactated Ringers 1,000 ML 125 ML IV (09:33)
--- NOTE | 2022-10-13 10:06 | PCM.HP.BLA ---
History and Physical Date of Admission: 10/13/22 [facility] [facility] [address] [place] [address] OFFICE VISIT Date of Service:? 07/22/22 MR#: [id number] Acct: [id number] Name:JOSÉ MIGUEL MENDEZ Rep #: [id number] : 1950 ? ? Provider: Dr. Darius Davis, DO Age/Sex:? 71/M ? ? Location: [facility] [place] Status: Signed with Addenda ADDENDUM by Dr. Darius Davis, DO on 10/02/22 at 0836 Assessment and Plan Assessment and Plan (1) Orthopedic aftercare: ?Status:?Acute Plan Correction to note patient brought to our attention he has been sober since 2007 and would like this corrected in the documentation. 10/02/22 0836 <Electronically signed by Darius Davis DO> Date Darius Davis DO cc: ? ~* Signed Intake Intake Visit Reasons:?RIGHT KNEE Chief Complaint: right knee Is patient in pain?: Yes Allergies No Known Allergies Allergy (Verified 07/17/22 11:33) Medications pravastatin 20 mg tablet 20 mg PO DAILY #90 tabs 06/10/22 [Rx Confirmed 07/22/22] acetaminophen 500 mg tablet 1,000 mg PO Q6H PRN #100 tabs 07/07/22 [Rx Confirmed 07/22/22] oxycodone 5 mg tablet 5 - 10 mg PO Q6H PRN Pain Score 6-10/10 7 days #56 tabs 07/17/22 [Rx Confirmed 07/22/22] PFSH Medical History? Arthritis Bilateral primary osteoarthritis of knee Former smoker History of steroid therapy History of stress test Hyperlipemia Wears glasses Surgical History? History of knee surgery History of surgery on wrist Family History? Other Family history not known due to adoption Social History? household members:? none current occupational status:? 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 Former smoker Electronic Cigarette Use:? not used alcohol intake:? former year quit: 2006 substance use type:? does not use what type of physical activity do you participate in:? walking and bicycling do you feel safe at home:? Yes HPI RIGHT KNEE Details: Parts of this documentation were recorded by a scribe, this documentation accurately reflects the service provided and the decisions made by me, Dr. Darius Davis, DO 07/22/22 0836. JOSÉ MIGUEL NGUYEN is a 71 year old M here today for? 2 week post op from Right total knee arthroplasty CT guided Robotic Assisted. Michael removed without any concerns. He states that he has been driving to therapy when he cant find a ride while taking oxycodone. He has pain over the posterior medial side of his calf today. mild Calf tenderness to palpation only but negative Homans. 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 Ortho Exam General General: Yes no acute distress Neurologic: Yes alert and Yes oriented x3 Psychologic: Yes reasonable and appropriate Right Knee Date of Surgery: 07/07/22 Skin/Wound: Yes healing, Yes suture/michael removed, No erythema, No ecchymosis and Yes swelling Homans Sign: No Knee ROM: No ROM-Extension -20 to 0 (lacking 15) and No ROM-Flexion 0-140 (85) Examination: No Med jt line tenderness and No Lat jt line tenderness KNEE: Palmer removed incision looks good no sign of infection Head: Normocephalic Atraumatic Chest: symmetrical rise, non-labored breathing, no audible wheeze Abdomen: no guarding, non-rigid Supplemental Info 06/17/2022 x-ray lumbar spine.:?There is multilevel endplate spondylosis of the lumbar vertebrae.? There is multi-level degenerative disc disease with multi-level disc space narrowing.? Degenerative scoliosis 05/18/2022 x-ray left knee: Advanced medial compartment arthrosis moderate patellofemoral slight varus deformity 05/18/2022 x-ray right knee: Advanced medial compartment arthrosis moderate lateral and patellofemoral, varus deformity. Coding Level of Care Code Global Post Op Diagnoses Orthopedic aftercare? Z47.89 Assessment and Plan Assessment and Plan (1) Orthopedic aftercare: ?Status:?Acute Plan Educated that he needs to work on ROM and continue with PT. He will need to work on swelling by icing and elevating the right leg. If he starts to develop increased pain in the calf he should contact the office. He will need to wear his MITUL hose longer about an additional 2 weeks. Educated that patients typically do not feel safe to drive until 6 weeks post op. He did drive yesterday to therapy. He should not be taking Narcotics while driving. Minimize the use of narcotics as this can be addictive. Follow up in 4 weeks or sooner if pain, swelling, numbness or associated symptoms, or concerns develop.? All questions answered. Patient in agreement of plan. 07/22/22 1141 <Electronically signed by Darius Davis DO> Date Darius Davis DO Cosigner Signature: Date (if applicable) ? CC: ? ~ I have examined the patient and the H&P has been reviewed. There are no clinical changes since date of exam.
[2022-10-13 10:30] LABS: Bedside Glucose 98 mg/dL (74-106)
--- NOTE | 2022-10-13 11:05 | KNEE_PTH ---
PATIENT: JOSÉ MIGUEL NGUYEN LOC: [facility] [place] U#:[id number] AGE/SX: 72/M ROOM: RE10/13/[address]: Dr. Darius Davis DO : 1950 BED: DIS: 10/13/2022 SPEC #: [id number] RECD: 10/13/22 16:32 STATUS: SARI REYuan #: [id number] CANDACE: 10/13/22 11:[address]: Darius Davis DEPT: SURGICAL PATHOLOGY RECD BY: Bobbi Aldrich ENTERED: 10/14/22 09:20 SP TYPE: TOTAL KNEE OTHR DR: MD Cortez Martinez, SALES ENABLEMENT LEAD-C Tissues: Knee, NOS Procedures: Decalcification bone/plaque Surgery Specimen Level IV HEADER OPERATION: ERAS, total knee replacement robotic arm assist PRE-OP DIAGNOSIS: Left knee degenerating TISSUE SUBMITTED: Left knee bone and tissue MICROSCOPIC DIAGNOSIS Bone and tissue of left knee, total knee resection: Severe degenerative joint disease. AM:kenzie 10/19/2022 MICROSCOPIC DESCRIPTION Slides are reviewed. GROSS DESCRIPTION Received is one container designated bone and soft tissue left knee. The specimen consists of multiple fragments of robison-yellow bone measuring in aggregate 9.0 x 10.0 x 3.0 cm. No soft tissue is identified. A number of bony fragments contain articular surfaces consistent with tibial plateau and femoral condyle and displaying prominent osteophyte formation, eburnation and bone erosion. Electrical Assemblies Supervisor sections are submitted in one cassette after decalcification. / SJ:kenzei 10/14/2022 TC:5 CPT: 11746, 28850
[2022-10-13] MEDS: Cefazolin 2 GM in 0.9% Normal Saline 100 ML IV (11:13)
[2022-10-13] MEDS: TXA 1000mg in NS100 100ml (IVPB at Closure) 660 MG IV (11:23)
[2022-10-13] MEDS: dexAMETHasone 10 MG/ML Vial IV (11:40)
[2022-10-13] MEDS: Bupivacaine 0.25% 30 ML Vial (12:07)
[2022-10-13] MEDS: 0.9% Normal Saline (Pres. free 10 ML Vial (12:08)
[2022-10-13] MEDS: Epinephrine (1 mg/ml) 1 MG/ML VIAL (12:08)
[2022-10-13] MEDS: TXA 1000mg in NS100 100ml (IVPB at Incision) 660 MG IV (12:16)
--- NOTE | 2022-10-13 13:43 | RAD_ITS ---
EXAM: XR LEFT KNEE, 1 OR 2 VIEWS CLINICAL INDICATION: post op in pacu -- in PACU TECHNIQUE: Frontal and/or lateral views of the left knee. This report was created using [employer] report ZigaVite technology. COMPARISON: None. FINDINGS: BONES/JOINTS: Status post left total knee arthroplasty with the prosthetic elements in good alignment. No acute fracture. No sclerotic or destructive changes observed. SOFT TISSUES: Gas in the soft tissues and within the left knee joint space. No radiopaque foreign body. RAD/Knee 1 or 2 Views IMPRESSION: 1. Gas in the soft tissues and within the left knee joint space. 2. Status post left total knee arthroplasty with the prosthetic elements in good alignment. Electronically Signed: Flynn Colmeanres MD at 7:30 EDT ,
--- NOTE | 2022-10-13 13:44 | OP.PCM_ITS ---
Operative Report Date of Procedure: 10/13/22 Preoperative diagnosis: Left knee DJD Postoperative diagnosis: Same Procedure: Left total knee arthroplasty CT guided Robotic Assisted Implant: Farida triathlon press fit, femoral component size5, tibial baseplate size 6, asymmetric patella size 38, polyethylene X3 size 9 CS Anesthesia: Spinal with adductor canal block Tourniquet time: 28 minutes at 300 mmHg Complications: None Condition: Stable to PACU Estimated blood loss: 200 cc Indication for procedure: This is a 72-year-old male with long standing degenerative joint disease of the knee who has failed conservative treatment and wished to proceed with elective total knee arthroplasty. Risk benefits and alternatives were reviewed including; risk of bleeding, infection, nerve artery and tissue damage, continued pain, postoperative stiffness, venous thromboembolism, need for postoperative rehabilitation, mechanical feel to the knee, and expected postoperative course. The pre- operative CT and templating was performed with component sizing. Procedure: The patient was met in the preoperative holding area. The operative extremity was identified by both patient and physician and was marked. Patient was met by anesthesia. An adductor canal block was placed by anesthesia postoperatively the patient was brought back to the operating room on a wheeled cart and transferred to the operating table in the supine position. Anesthesia was started. A well-padded tourniquet was placed on the operative extremity. The patient was prepped and draped in the usual sterile fashion. A timeout was called to ensure the proper patient procedure and extremity were being contemplated. An esmarch was used to exsanguinate the extremity. The tourniquet was inflated. A 10 blade scalpel was used to make a midline incision down through the skin and subcutaneous tissue. Skin retractors placed. Bovie and Aquamantis were used to perform meticulous hemostasis. full-thickness flaps were elevated medial and lateral along the joint capsule. A deep blade scalpel was used to perform a medial parapatellar arthrotomy. The knee was brought to full extension. A bovie was used to release the soft tissues off the most proximal aspect of the medial tibial plateau, a three-quarter inch curved osteotome was also used in this process. The infrapatellar fat pad was excised. The suprapatellar fat pad was excised partially anteriorolateraly and portion the anterioromedial pad was elevated from the femur. At this point our intra- articular femoral array was placed at a 45 degree angle proximal and posterior to the medial epicondyle. femoral checkpoint was placed at this time. Our tibial array was placed greater than 1 hands breath below the incision at a 20 degree angle stab incisions were made with a 15 blade scalpel and pins were placed and attached to the tibial array , tibial checkpoint was placed in the proximal tibial metaphysis. Tourniquet was let down. At this point registration henry were taken throughout the knee . Once the knee was registered we then tensioned the medial and lateral ligaments in extension and 90 degrees of flexion. We then used these numbers to adjust our components within parameters to balance the knee in both flexion and extension once this was done on our monitor we then proceeded with using the robotic arm to make our tibial plateau cut, anterior and posterior chamfer and distal femur cuts. we removed the cut fragments with the use of a bovie and Micki, we did use a lamina labeling specialist to insure we visualized and removed all posterior osteophytes and at this time also used the Aquamantis on the posterior joint capsule. we then trialed and achieved the desired plan with a well-balanced knee. we used the green probe to vishal the corresponding tibial rotation based on our CT template. Lug holes were drilled in the femur the tibia preparation was completed with the appropriate sized base plate pinned based on previous rotation vishal. An appropriate sized fin punch was used on the tibia and 4 corner drill was used for the press fit component and the patella was prepared by first using a caliper to ensure sufficient bone stock and a patellar reamer to remove the desired amount of bone. lug holes drilled for an asymmetric poly. We then brought the knee through range of motion with excellent patellar tracking. We thoroughly irrigated the knee. Trial components were removed a posterior capsular injection was preformed with our standard cocktail. In popeye tion the aqua Mantis was also used to aid in hemostasis. Betadine rinse was allowed to sit and washed out completely. Components were press-fit into place. Aricept rinse was then used followed by several more liters of irrigation after it was allowed to sit. The joint capsule was closed with #1 Ethibond [id number]-vv-xsuin's followed by Vicryl in the subcutaneous tissues with alyson in the skin. Arrays and checkpoints were removed prior to closure all counts were correct stab incisions were closed with a staple standard dressing in the form of Mepilex AG for the main incision and a small Mepilex over the pin holes. Thigh-high MITUL hose applied over top of dressing. Patient tolerated the procedure well and was directed to PACU in stable condition . There were no intraoperative complications.
--- NOTE | 2022-10-13 13:46 | DCINST_ITS ---
Discharge Instructions Diet Discharge Diet: No restrictions Dressing / Incision Call your doctor if you observe: Shortness of breath and Chest pain Additional Dressing/Incision Instructions:: Ice and elevate lower extremities 2 weeks while not ambulating. Ambulation is encouraged. Weight bearing as tolerated. Use assistive devise for stability. Encourage FULL knee extension and flexion 1 time EVERY time you get up and down and MULTIPLE times per day. No showering 72 hours after surgery. Begin showering postop day #3. Remove the dressing prior to shower and gently wash with warm water and antibacterial soap then pat dry and place abdominal pad (or plain gauze) and MITUL hose over top. This is to be done daily. Do not submerge for 3 weeks. If not showering daily after the initial 72 hours then you must clean incision and change dressing daily. Do not allow animals near the incision area. Keep clean. Follow anti- coagulation recommendations as prescribed. Do not take any NSAIDs while on blood thinner. Do not take any additional narcotic pain medication other than what was prescribed on your surgery day without discussing with physician. Narcotic medication can be addictive. Do not drink alcohol while taking narcotics. Supplement narcotic prescription with acetaminophen 1000 mg 4 times a day. Start physical therapy. If you are not currently scheduled for physical therapy or you are unsure of appointment time please call office [facility] to arrange. Call Dr. Davis with any concerns. Follow Up Care Please Follow Up With: Darius Davis DO When: 2 weeks Test Results: Test results from this visit will be discussed in further detail at your follow- up appointment, if applicable. Discharge Plan Admission Primary Reason for Your Visit: Left total knee arthroplasty Attending Provider: Darius Davis Primary Care Provider: Megan Chambers Consulting Providers: Cortez Quintana NP Discharge Orders/Prescriptions Prescriptions: New acetaminophen [acetaminophen] 500 mg tablet 1,000 mg PO Q6H PRN Qty: 100 0RF cephalexin [cephalexin] 500 mg capsule 1,000 mg PO Q8 Qty: 4 0RF Rx Instructions: take 2 tabs at 9:00 pm and 2 tabs after 5 am when you wake up oxycodone 5 mg tablet 5 mg PO Q4H PRN (Reason: pain) 7 Days Qty: 60 0RF Xarelto 10 mg tablet 10 mg PO DAILY Qty: 14 0RF Rx Instructions: Begin morning after surgery Continued pravastatin 20 mg tablet 20 mg PO DAILY Qty: 90 1RF Discontinued acetaminophen [acetaminophen] 500 mg tablet 1,000 mg PO Q6H PRN PRN (Reason: Pain) Referrals / Follow Up: Megan Chambers MD [Primary Care Provider] - Disposition Discharge Orders: Discharge Patient (Routine); Ordered 10/13/22 Ordered By: Dr. Darius Davis
[2022-10-13] MEDS: Cefazolin 1 GM/50 ML BAG IV ×2 (14:33→15:05)
== END 2022-10-13 18:33 | disposition home or self-care (01) ==
LOC: SDC 08:29 → AC 08:30
PROVIDERS: Anesthesiology; PCP Internal Medicine; Referring Provider Orthopaedic Surgery; Visit Provider Orthopaedic Surgery
PROC: 0SRD0JZ Replacement of Left Knee Joint with Synthetic Substitute, Open Approach (ICD-10-PCS; CPT 27447; principal; 2022-10-13 10:35)
DX: M17.0 Bilateral primary osteoarthritis of knee (principal); E78.5 Hyperlipidemia, unspecified; R73.03 Prediabetes; E66.9 Obesity, unspecified; Z87.891 Personal history of nicotine dependence; Z79.899 Other long term (current) drug therapy
CPT/HCPCS: 27447; 64447; 73560; 80053; 82962; 82985; 83036; 83735; 84443; 85025; 85610; 85730; 86850; 86900; 86901; 86902; 86920; 86922; 87081; 88305; 88311; 93005; 97163; C1776; J7120; J2405; J3490

== ENCOUNTER 2022-12-25 08:00 | Outpatient (RCR) | payer MEDICARE, SELFPAY ==
--- NOTE | 2022-10-19 11:22 | HP.PTEVAL_ITS ---
Patient's Visit Information JOSÉ MIGUEL NGUYEN is a 72 year old M referred to Physical Therapy by Dr. Darius Davis DO with a diagnosis of L TKA. Date of Evaluation: 10/19/22 Physical Therapist: Vinicius Ch PT, ATC - Visit Plan Frequency: 2-3x /Week Duration: 4-6 Weeks Plan: L knee PROM/mobs, stretching and strengthening, balance and proprio, nustep, and HEP - Subjective DOS: 10/13/22. Pt had a L TKA performed on that date. Pt notes he was feeling pretty good after the surgery, but notes he is really sore and stiff today. Pt denies any tingling or numbness at this time. Pt reports no sleep difficulty at this time secondary to keeping up on his pain meds. Pt reports his bed is up stairs at home, and notes he is able to ascend the steps one step at a time, but has to descend his steps retro. 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 Pt reports he had arthoscopic surgery performed on his L knee in 2011. Pt reports he would like to be able to go to [employer] again but hasnt returned since his surgery. Pt had a R TKA performed 3 months ago. Pt reports he is currently 7/10 pain at this time, which is the worst it has been since the DOS. - Pain L TKA Pain Intensity (Out of 10): 7 Pain Intensity Range: 7 - Objective Neuro: B LE's are WNL to light touch. B achilles reflex= 1/3. Girth at joint line: R knee 42, L knee 47 cm. ROM: R knee 0-20-110, L knee 0-30-80 degrees. MMT: L knee flex= 18, ext= 11 #F; R knee flex= 42, ext= 39 #F. Tu.8 sec - Balance/Special Test Scores Lower Extremity Functional Score: 19 - Goals Goal 1:: Decrease L knee pain x 50% to aid with sleep Goal Time Frame: 4-6 Weeks Goal 2:: Increase L knee ROM x 30 degrees to aid with restoring a more normalized gait pattern Goal Time Frame: 4-6 Weeks Goal 3:: Increase L knee strength x 10#F to aid with stair negotiation Goal Time Frame: 4-6 Weeks Goal 4:: I with HEP Goal Time Frame: 4-6 Weeks - Rehabilitation Potential Physical Therapy Diagnosis: Pt has L knee pain, weakness, and limited ROM se condary to L TKA Rehabilitation Potential: Good - Anticipated Interventions Patient/Client Instruction: Educate patient on: Condition, Plan of Care For the Purpose of:: To improve self management Therapeutic Exercise to Include: Strength training, Endurance training, Balance training, Flexibilty training, Gait and locomotor training, Dynamic Lumbar Stabilization For the Purpose of:: To decrease pain, To increase ROM, To improve muscle performance and motor function Cryotherapy (ice pack, ice massage): Yes For the Purpose of:: To decrease pain Thank you for the opportunity to evaluate your patient. For Medicare and Medicare HMO plans, please review the plan of care and approve it. It will need to be FAXED BACK to us at [phone] for Medicare purposes. For Medicare only, by signing this I certify the plan of care. Please let me know if there are questions or concerns regarding this plan of care. Physician Signature: __Date:
--- NOTE | 2022-11-09 09:55 | HP.PTREVAL ---
Dr. Darius Davis, DO, It has been my pleasure to treat JOSÉ MIGUEL NGUYEN over the last 10 visits for L TKA 10/13/22. Please see the progress note below for an update on the physical therapy plan of care! Subjective: I was in terrible pain over the weekend Objective/Function: No increase in pain after Rx today. R knee pain /10, L knee pain 3/10. R knee ROM 0-10-105, L knee ROM 0-5-115 degrees. Pt continues to demonstrate good progress at this time. Plan Plan: L knee PROM/mobs, stretching and strengthening, balance and proprio, nustep, and HEP Balance/Gait/Functional tests - Balance/Special Test Scores Lower Extremity Functional Score: 37 Goals Goal 1:: Decrease L knee pain x 50% to aid with sleep Goal Time Frame: 4-6 Weeks Goal Progress: Progressing Goal 2:: Increase L knee ROM x 30 degrees to aid with restoring a more normalized gait pattern Goal Time Frame: 4-6 Weeks Goal Progress: Progressing Goal 3:: Increase L knee strength x 10#F to aid with stair negotiation Goal Time Frame: 4-6 Weeks Goal Progress: Progressing Goal 4:: I with HEP Goal Time Frame: 4-6 Weeks Goal Progress: Progressing Anticipated Interventions Patient/Client Instruction: Educate patient on: Condition, Plan of Care For the Purpose of:: To improve self management Therapeutic Exercise to Include: Strength training, Endurance training, Balance training, Flexibilty training, Gait and locomotor training, Dynamic Lumbar Stabilization For the Purpose of:: To decrease pain, To increase ROM, To improve muscle performance and motor function Cryotherapy (ice pack, ice massage): Yes For the Purpose of:: To decrease pain Please do not hesitate to contact me at [phone] by phone or if you have questions or concerns regarding this new plan of care! Sincerely, Vinicius Ch, PT, ATC
--- NOTE | 2022-11-23 10:04 | HP.PTREVAL ---
Dr. Darius Davis, DO, It has been my pleasure to treat JOSÉ MIGUEL NGUYEN over the last 15 visits for L TKA 10/13/22. Please see the progress note below for an update on the physical therapy plan of care! Subjective: I was sore over the weekend. I had a throbbing pain Objective/Function: L knee pain ranges from 0-8/10. L knee MMT: flex= 42, ext= 34 #F. L knee ROM: 0-7-116 degrees Plan Plan: L knee PROM/mobs, stretching and strengthening, balance and proprio, nustep, and HEP Balance/Gait/Functional tests - Balance/Special Test Scores Lower Extremity Functional Score: 37 Goals Goal 1:: Decrease L knee pain x 50% to aid with sleep Goal Time Frame: 4-6 Weeks Goal Progress: Progressing Goal 2:: Increase L knee ROM x 30 degrees to aid with restoring a more normalized gait pattern Goal Time Frame: 4-6 Weeks Goal Progress: Progressing Goal 3:: Increase L knee strength x 10#F to aid with stair negotiation Goal Time Frame: 4-6 Weeks Goal Progress: Progressing Goal 4:: I with HEP Goal Time Frame: 4-6 Weeks Goal Progress: Progressing Anticipated Interventions Patient/Client Instruction: Educate patient on: Condition, Plan of Care For the Purpose of:: To improve self management Therapeutic Exercise to Include: Strength training, Endurance training, Balance training, Flexibilty training, Gait and locomotor training, Dynamic Lumbar Stabilization For the Purpose of:: To decrease pain, To increase ROM, To improve muscle performance and motor function Cryotherapy (ice pack, ice massage): Yes For the Purpose of:: To decrease pain Please do not hesitate to contact me at [phone] by phone or if you have questions or concerns regarding this new plan of care! Sincerely, Vinicius Ch, PT, ATC
--- NOTE | 2022-12-25 09:33 | HP.PTDCSUM ---
It has been my pleasure to treat JOSÉ MIGUEL NGUYEN referred by Dr. Darius Davis DO, with the diagnosis of L TKA 10/13/22 for a total of 26 visit(s). Discharge Date: Please see the following information for a summary of their discharge status. Subjective: I dont have any pain today L TKA Pain Intensity (Out of 10): 0 % Improvement: 80 Objective/Function: L knee pain is 0/10. L knee ROM: 0-10-117. L knee MMT: flex= 40, ext= 53 #F. Pt is I with HEP Goal 1:: Decrease L knee pain x 50% to aid with sleep Goal Progress: Goal Met Goal 2:: Increase L knee ROM x 30 degrees to aid with restoring a more normalized gait pattern Goal Progress: Goal Met Goal 3:: Increase L knee strength x 10#F to aid with stair negotiation Goal Progress: Goal Met Goal 4:: I with HEP Goal Progress: Goal Met Plan: Discharge to HEP If there are questions or concerns regarding this patient's physical therapy, please feel free to call me at [phone]. Thank you for the referral of this patient. Sincerely, Vinicius Ch, PT, ATC Balance/Gait/Functional tests - Balance/Special Test Scores Lower Extremity Functional Score: 37 WOMAC Total Score: 23 WOMAC Percentage: 76.0500
== END 2022-12-25 09:59 | disposition home or self-care (01) ==
LOC: PT 08:00
PROVIDERS: PCP Internal Medicine; Referring Provider Orthopaedic Surgery; Visit Provider Orthopaedic Surgery
DX: M17.0 Bilateral primary osteoarthritis of knee (principal)
CPT/HCPCS: 97110; 97140; 97161; 97164

== ENCOUNTER → 2023-03-26 | Outpatient (CLI) | payer MEDICARE, SELFPAY ==
[2023-03-26 12:27] LABS: Absolute Lymphocyte Count 1.13 X10^3/uL (0.83-4.51); Absolute Neutrophil Count 2.5 X10^3/uL (2.0-7.7); Basophil# 0.04 X10^3/uL; Basophil% 0.9 % (0-1); Eosinophil# 0.26 X10^3/uL; Eosinophils% 5.7 % (0-5); Hematocrit 43.2 % (40-54); Hemoglobin 13.7 g/dL (13.0-16.5); Lymphocyte # 1.13 X10^3/ul (0.83-4.51); Lymphocyte % 24.6 % (19-41); Mean Corp Hgb Conc 31.7 g/dL (32-36); Mean Corpuscular Hgb 30.5 pg (27.0-32.0); Mean Corpuscular Volume 96.2 fL (80-94); Mean Platelet Vol. 11.6 fl (6.2-12.0); Monocyte# 0.64 X10^3/uL; Monocyte% 13.9 % (0-10); NRBC Flagged by Analyzer 0 % (0-5); Neutrophil % 54.5 % (47-70); Platelet Count 168 K/mm3 (150-450); RBC Distribution Width CV 13.3 % (11.6-14.6); RBC Distribution Width SD 47.1 fl (35.1-43.9); Red Blood Count 4.49 M/mm3 (4.6-6.2); White Blood Count 4.6 K/mm3 (4.4-11.0)
[2023-03-26 12:56] LABS: ALB/GLOB Ratio 1.3 RATIO (0.9-2.4); AST(SGOT) 11 U/L (15-37); Alanine Aminotransfer ALT/SGPT 24 U/L (16-61); Albumin, Serum 3.8 g/dL (3.2-5.0); Alkaline Phosphatase 64 U/L (45-117); Anion Gap 2 (5-15); BUN 18 mg/dL (7-18); Calcium,Total 8.8 mg/dL (8.5-10.1); Chloride 109 mmol/L (98-107); Cholesterol 142 mg/dL (200); Creatinine, Serum 0.78 mg/dL (0.70-1.30); EST Glomerular Filtration Rate 104 mL/min (>60); Est Glom Filt Rate - Afr Amer 126 mL/min (>60); Globulin 2.9 g/dL (2.2-4.2); Glucose 91 mg/dL (74-106); High Density Lipoprotein 56 mg/dL; Potassium 4.4 mmol/L (3.5-5.1); Protein, Total 6.7 g/dL (6.4-8.2); Sodium Level 139 mmol/L (136-145); Triglycerides 53 mg/dL; Very Low Density Lipoprotein 11 mg/dL (5-40)
[2023-03-26 13:26] LABS: Hemoglobin A1c 5.7 % (3.8-5.6)
== END | disposition home or self-care (01) ==
LOC: BIMLAB 08:05
PROVIDERS: PCP Internal Medicine; Visit Provider Internal Medicine
DX: E78.2 Mixed hyperlipidemia (principal); G47.10 Hypersomnia, unspecified; R73.03 Prediabetes
CPT/HCPCS: 36415; 80053; 80061; 83036; 85025

== ENCOUNTER 2023-04-06 08:56 | Outpatient (RCR) | payer SELFPAY | END 2023-04-17 23:59 | LOC: NS 08:56 | PROVIDERS: PCP Internal Medicine; Referring Provider Internal Medicine; Visit Provider Internal Medicine | DX: E66.9 Obesity, unspecified (principal); Z68.37 Body mass index [BMI] 37.0-37.9, adult | CPT/HCPCS: 97802 ==

== ENCOUNTER → 2023-04-06 | Outpatient (CLI) | payer MEDICARE, SELFPAY | END | disposition home or self-care (01) | LOC: SL 10:17 | PROVIDERS: PCP Internal Medicine; Referring Provider Internal Medicine; Visit Provider Internal Medicine | DX: G47.10 Hypersomnia, unspecified (principal) | CPT/HCPCS: 95806 ==

== ENCOUNTER → 2023-04-26 | Outpatient (CLI) | payer SELFPAY | END | disposition home or self-care (01) | LOC: SL 09:08 | PROVIDERS: PCP Internal Medicine; Visit Provider Internal Medicine | DX: Z00.00 Encounter for general adult medical examination without abnormal findings (principal) ==

== ENCOUNTER 2023-05-25 08:30 | Outpatient (RCR) | payer SELFPAY | END 2023-06-17 23:59 | LOC: NS 08:30 | PROVIDERS: PCP Internal Medicine; Referring Provider Internal Medicine; Visit Provider Internal Medicine | DX: Z71.3 Dietary counseling and surveillance (principal); E66.9 Obesity, unspecified; Z68.37 Body mass index [BMI] 37.0-37.9, adult | CPT/HCPCS: 97803 ==

== ENCOUNTER 2023-08-04 08:09 | Outpatient (RCR) | payer SELFPAY | END 2023-08-18 23:59 | LOC: NS 08:09 | PROVIDERS: PCP Internal Medicine; Referring Provider Internal Medicine; Visit Provider Internal Medicine | DX: Z71.3 Dietary counseling and surveillance (principal); E66.9 Obesity, unspecified; Z68.37 Body mass index [BMI] 37.0-37.9, adult | CPT/HCPCS: 97803 ==

== ENCOUNTER 2023-12-29 15:47 | Outpatient (CLI) | payer SELFPAY | END 2023-12-29 23:59 | disposition home or self-care (01) | PROVIDERS: PCP Internal Medicine; Visit Provider Physician Assistant | DX: R26.89 Other abnormalities of gait and mobility (principal); J06.9 Acute upper respiratory infection, unspecified | CPT/HCPCS: 87631 ==

== ENCOUNTER → 2024-05-05 | Outpatient (CLI) | payer MEDICARE, SELFPAY ==
[2024-05-05 12:15] LABS: Absolute Lymphocyte Count 1.45 X10^3/uL (0.83-4.51); Absolute Neutrophil Count 3.6 X10^3/uL (2.0-7.7); Basophil# 0.05 X10^3/uL; Basophil% 0.8 % (0-1); Eosinophil# 0.34 X10^3/uL; Eosinophils% 5.6 % (0-5); Hematocrit 39.8 % (40-54); Hemoglobin 12.9 g/dL (13.0-16.5); Lymphocyte # 1.45 X10^3/ul (0.83-4.51); Lymphocyte % 23.7 % (19-41); Mean Corp Hgb Conc 32.4 g/dL (32-36); Mean Corpuscular Hgb 31.5 pg (27.0-32.0); Mean Corpuscular Volume 97.3 fL (80-94); Mean Platelet Vol. 11.7 fl (6.2-12.0); Monocyte# 0.68 X10^3/uL; Monocyte% 11.1 % (0-10); NRBC Flagged by Analyzer 0 % (0-5); Neutrophil # 3.56 X10^3/uL (2.7-7.7); Neutrophil % 58.3 % (47-70); Platelet Count 171 K/mm3 (150-450); RBC Distribution Width CV 12.8 % (11.6-14.6); RBC Distribution Width SD 46.2 fl (35.1-43.9); Red Blood Count 4.09 M/mm3 (4.6-6.2); White Blood Count 6.1 K/mm3 (4.4-11.0)
[2024-05-05 12:50] LABS: ALB/GLOB Ratio 1.3 RATIO (0.9-2.4); AST(SGOT) 16 U/L (15-37); Alanine Aminotransfer ALT/SGPT 28 U/L (16-61); Albumin, Serum 3.9 g/dL (3.2-5.0); Alkaline Phosphatase 68 U/L (45-117); Anion Gap 2 (5-15); BUN 17 mg/dL (7-18); BUN/Creat Ratio 19.9 RATIO (10-20); Calcium,Total 9.3 mg/dL (8.5-10.1); Chloride 108 mmol/L (98-107); Cholesterol 150 mg/dL (200); Creatinine, Serum 0.85 mg/dL (0.70-1.30); EST Glomerular Filtration Rate 94 mL/min (>60); Est Glom Filt Rate - Afr Amer 113 mL/min (>60); Globulin 2.9 g/dL (2.2-4.2); Glucose 105 mg/dL (74-106); High Density Lipoprotein 74 mg/dL; Potassium 4.8 mmol/L (3.5-5.1); Protein, Total 6.8 g/dL (6.4-8.2); Sodium Level 139 mmol/L (136-145); Triglycerides 37 mg/dL; Very Low Density Lipoprotein 7 mg/dL (5-40)
[2024-05-05 13:08] LABS: Hemoglobin A1c 5.6 % (3.8-5.6)
== END | disposition home or self-care (01) ==
LOC: BIMLAB 08:52
PROVIDERS: PCP Internal Medicine; Referring Provider Internal Medicine; Visit Provider Internal Medicine
DX: E78.2 Mixed hyperlipidemia (principal); R73.03 Prediabetes; G47.33 Obstructive sleep apnea (adult) (pediatric)
CPT/HCPCS: 36415; 80053; 80061; 83036; 85025

== ENCOUNTER → 2024-11-06 | Outpatient (CLI) | payer MEDICARE, SELFPAY | END | disposition home or self-care (01) | LOC: SL 12:13 | PROVIDERS: PCP Internal Medicine; Visit Provider Internal Medicine | DX: Z00.00 Encounter for general adult medical examination without abnormal findings (principal) ==

== ENCOUNTER → 2025-01-26 | Outpatient (CLI) | payer MEDICARE, SELFPAY ==
--- NOTE | 2025-01-26 10:44 | RAD_ITS ---
PROCEDURE: CHEST PA AND LATERAL 01/26/2025 REASON FOR EXAM: SHORTNESS OF BREATH TECHNIQUE: CHEST PA AND LATERAL COMPARISON: None provided. RAD/Chest PA and Lateral IMPRESSION: Lungs are hypoinflated. Probable chronic lung changes, but no acute pneumonic process is clearly identified. No evidence of pulmonary edema. No pleural effusion or pneumothorax is noted. The cardiomediastinal silhouette is within the normal range; no evidence of car diomegaly. Old healed left 5th rib fracture. [id number]-xi-[id number] degenerative changes of the visualized spine are seen. Reading Location: [address]
== END | disposition home or self-care (01) ==
LOC: MTRAD 10:35
PROVIDERS: PCP Internal Medicine; Referring Provider Physician Assistant Surgical; Visit Provider Physician Assistant Surgical
DX: R06.02 Shortness of breath (principal)
CPT/HCPCS: 71046

== ENCOUNTER → 2025-02-06 | Outpatient (CLI) | payer MEDICARE, SELFPAY ==
[2025-02-06 12:43] LABS: Hematocrit 43.1 % (40-54); Hemoglobin 13.8 g/dL (13.0-16.5); Immature Granulocytes Count 0.040 X10^3/uL (0.0-0.0); Mean Corp Hgb Conc 32.0 g/dL (32-36); Mean Corpuscular Volume 96.9 fL (80-94); Mean Platelet Vol. 11.7 fl (6.2-12.0); NRBC Flagged by Analyzer 0 % (0-5); Platelet Count 175 K/mm3 (150-450); RBC Distribution Width CV 13.4 % (11.6-14.6); RBC Distribution Width SD 48.1 fl (35.1-43.9); Red Blood Count 4.45 M/mm3 (4.6-6.2); White Blood Count 7.3 K/mm3 (4.4-11.0)
[2025-02-06 12:51] LABS: D-Dimer Quantitative (DVT/PE) 0.39 FEU/ug/m (0.27-0.49)
[2025-02-06 13:24] LABS: AST(SGOT) 16 U/L (<=37); Alanine Aminotransfer ALT/SGPT 18 U/L (<=46); Albumin, Serum 4.2 g/dL (3.4-4.8); Alkaline Phosphatase 65 U/L (40-129); Anion Gap 10 (5-15); BUN 16 mg/dL (4-19); BUN/Creat Ratio 18.5 RATIO (10-20); Calcium,Total 9.3 mg/dL (7.6-11.0); Carbon Dioxide 25.1 mmol/L (21.0-32.0); Chloride 108 mmol/L (98-108); Cholesterol 159 mg/dL (<=200); Globulin 2.4 g/dL (2.2-4.2); Glucose 116 mg/dL (70-99); Low Density Lipoprotein Calc. 89 mg/dL; Potassium 5.5 mmol/L (3.3-5.1); Triglycerides 54 mg/dL; Troponin T High Sensitivity 10 ng/L (<=22); Very Low Density Lipoprotein 11 mg/dL (5-40); cholesterol:hdl ratio screen 2.69
== END | disposition home or self-care (01) ==
LOC: BIMLAB 08:09
PROVIDERS: PCP Internal Medicine; Referring Provider Internal Medicine; Visit Provider Internal Medicine
DX: Z00.00 Encounter for general adult medical examination without abnormal findings (principal); E78.2 Mixed hyperlipidemia; R73.03 Prediabetes; R07.81 Pleurodynia
CPT/HCPCS: 36415; 80053; 80061; 83036; 84484; 85025; 85379

== ENCOUNTER → 2025-02-20 | Outpatient (CLI) | payer MEDICARE, SELFPAY ==
[2025-02-20 12:51] LABS: Potassium 5.0 mmol/L (3.3-5.1)
== END | disposition home or self-care (01) ==
LOC: BIMLAB 08:08
PROVIDERS: PCP Internal Medicine; Referring Provider Internal Medicine; Visit Provider Internal Medicine
DX: E87.5 Hyperkalemia (principal)
CPT/HCPCS: 36415; 84132